=== PATIENT | male | born 1985 | race Caucasian/White ===

== ENCOUNTER 2021-07-06 12:11 | Emergency (ER) | payer OTHER ==
[2021-07-06 13:07] LABS: INFLUENZA A NAA NEGATIVE (NEGATIVE)
[2021-07-06 13:17] LABS: CORONAVIRUS 2019 SARS-COV-2 POSITIVE (NEGATIVE)
== END 2021-07-06 15:02 | disposition home or self-care (01) ==
LOC: FER 12:11
PROVIDERS: Nurse Practitioner Family
DX: U07.1 COVID-19 (principal); R03.0 Elevated blood-pressure reading, without diagnosis of hypertension
CPT/HCPCS: 99284; J0692; U0002